=== PATIENT | female | born 1950 | race Caucasian/White ===

== ENCOUNTER 2018-02-03 06:29 | Day surgery (SDC) | payer MEDICARE, BC ==
[2018-02-03] MEDS ORDERED: Lactated Ringers 1,000 ML IV SCH (07:00)
[2018-02-03] MEDS ORDERED: Propofol 200 MG/20 ML SDV ONE (07:46)
[2018-02-03] MEDS ORDERED: Midazolam 1 MG/ML 2 ML SDV ONE (07:46)
[2018-02-03] MEDS ORDERED: fentaNYL 100 MCG/2 ML SDV ONE (07:46)
--- NOTE | 2018-02-03 08:53 | OR ---
DATE OF PROCEDURE: 02/03/2018 PREOPERATIVE DIAGNOSIS: Strong family history of colon cancer, mother had colon cancer. POSTOPERATIVE DIAGNOSIS: Unremarkable colonoscopy, strong family history of colon cancer. Mother had colon cancer. PROCEDURE PERFORMED: Colonoscopy to the cecum. ANESTHESIA: IV anesthesia with monitored anesthesia care. INDICATION: This 67-year-old white female referred for a colonoscopy because of strong family history of colon cancer. Her mother had colon cancer. She says her last colonoscopic exam was done 5 or 6 years ago. I counseled her for the procedure including risks and alternatives and she gave her informed consent to proceed. DESCRIPTION OF PROCEDURE: The patient was placed in the left lateral decubitus position. IV anesthesia was administered by the Anesthesia Service. Time-out was held. A rectal exam was performed, which was unremarkable. The flexible video Olympus colonoscope was introduced through her anus, up her rectum and out her colon all the way to the cecum. Once the cecum was reached, the scope was slowly withdrawn examining the mucosa throughout. No mucosal abnormalities were noted. The scope was retroflexed in the rectum with the distal rectum appearing unremarkable. The scope was straightened and removed. She tolerated the procedure well. Jeremiah Ayers MD /[id number]
[2018-02-03 09:34] VITALS: BP 98/70
== END 2018-02-03 09:45 | disposition home or self-care (01) ==
LOC: JP.SDS 06:29
PROVIDERS: ATTEND Surgery
DX: Z12.11 Encounter for screening for malignant neoplasm of colon (principal); Z80.0 Family history of malignant neoplasm of digestive organs; Z88.2 Allergy status to sulfonamides
CPT/HCPCS: G0105; J2250; J2704; J3010; J7120

== ENCOUNTER 2021-09-28 19:43 | Emergency (ER) | payer MEDICARE ==
[2021-09-28 20:16] VITALS: BP 123/76; PULSE 74
== END 2021-09-28 21:38 | disposition home or self-care (01) ==
LOC: JP.ED 19:43
DX: S63.502A Unspecified sprain of left wrist, initial encounter (principal); Z88.8 Allergy status to other drugs, medicaments and biological substances; Z91.011 Allergy to milk products; W22.09XA Striking against other stationary object, initial encounter
CPT/HCPCS: 73110-LT; 99281; 99283

== ENCOUNTER 2023-03-03 06:43 | Day surgery (SDC) | payer MEDICARE ==
[2023-03-03] MEDS ORDERED: fentaNYL 100 MCG/2 ML SDV ONE (07:20)
[2023-03-03] MEDS ORDERED: Propofol 200 MG/20 ML SDV ONE (07:20)
[2023-03-03] MEDS ORDERED: Lactated Ringers 1,000 ML IV SCH (07:30)
[2023-03-03 09:34] VITALS: BP 125/62; PULSE 67
== END 2023-03-03 09:42 | disposition home or self-care (01) ==
LOC: JP.SDS 06:43
PROVIDERS: ATTEND Family Medicine
DX: Z12.11 Encounter for screening for malignant neoplasm of colon (principal); G25.81 Restless legs syndrome; K44.9 Diaphragmatic hernia without obstruction or gangrene; Z80.0 Family history of malignant neoplasm of digestive organs; Z88.2 Allergy status to sulfonamides; Z90.49 Acquired absence of other specified parts of digestive tract; Z88.8 Allergy status to other drugs, medicaments and biological substances; Z91.011 Allergy to milk products
CPT/HCPCS: G0105; J2704; J3010; J7120